=== PATIENT | male | born 1960 | race Caucasian/White ===

== ENCOUNTER 2019-02-06 20:37 | Emergency (ER) | payer OTHER, BC, SELFPAY ==
[2019-02-06 20:38] VITALS: BP 156/99; PULSE 81; RESP 16; TEMP 36.7; O2SAT 99; BMI 33.9
--- NOTE | 2019-02-06 20:49 | ED.RN ---
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
--- NOTE | 2019-02-06 21:16 | RAD_ITS ---
STUDY: X-RAY - LUMBAR SPINE REASON FOR EXAM: Male, 58 years old. 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 Back pain. TECHNIQUE: 3 view(s) of the lumbar spine were obtained. COMPARISON: None FINDINGS: Normal lumbar lordosis. There is no substantial scoliosis. There is a normal alignment of the vertebrae. There is multilevel endplate spondylosis of the lumbar vertebrae. There is minimal disc space narrowing. There is no evidence of acute fracture or loss of vertebral axial height. The soft tissue structures are unremarkable. RAD/Lumbar Spine 2 or 3 Views IMPRESSION: Degenerative changes of the spine, as detailed above. Electronically Signed: Guero Reese DO at 21:51 EST Tel [phone], Service support ,
--- NOTE | 2019-02-06 21:24 | RAD_ITS ---
STUDY: X-RAY - PELVIS AND RIGHT HIP REASON FOR EXAM: Male, 58 years old. Fell off a ladder at work. Hip pain radiating into the back. TECHNIQUE: 3 views of the pelvis and hip. COMPARISON: None. FINDINGS: There is a non-specific bowel gas pattern. Normal visualized soft tissue structures. Normal bilateral iliac wings, sacroiliac joints and visualized sacrum. Normal bilateral superior and inferior pubic rami. Normal pubic symphysis. Normal bilateral ischial tuberosities. Normal visualized right femoral head. Normal right acetabulum. There is mild articular joint space narrowing of the right hip. RAD/HIP, UNI W/ Pelvis 2-3 Views IMPRESSION: Minimal degenerative changes right hip. There is no acute fracture or dislocation. Electronically Signed: Guero Reese DO at 21:50 EST Tel [phone], Service support ,
--- NOTE | 2019-02-06 22:14 | ED.DCSUM_ITS ---
- ER Visit Summary Date of Service: 02/06/19 Chief Complaint: Fall History of Present Illness: The patient is a 58 M who presents after a fall that occurred today. Patient states he was climbing up on a ladder when 1 of the rungs broke and he fell. Patient states he landed on his right foot. Patient complains of pain in his right hip and low back. Patient denies any head injury or loss of consciousness. Patient states his pain is constant burning but sharp at times. Patient states the pain is worse with certain movements. Patient does admit to some tingling down his right leg. Patient denies any bowel or bladder changes. Patient denies any saddle anesthesia. Physical Examination: Vital signs are stable. Patient is afebrile. Patient is in no acute distress. Musculoskeletal exam reveals tenderness and spasm of the right lumbar paraspinal muscles. There is no midline tenderness. There is no bony crepitance or step-off. There is also tenderness over the right hip. There is pain with internal and external rotation. There is no deformity noted. Patient is sitting on exam. Strength is 5/5 bilateral knee upper and lower extremities. There are no sensory deficits noted. Pedal pulses are equal bilaterally. Test Results: X-rays of the lumbar spine were obtained. There is some degenerative changes but no acute fracture. X-rays of the right hip were obtained. There is no acute fracture. These were interpreted by the radiologist and myself. Emergency Department Course and Treatment: Patient was advised that this is most likely muscular strain. Patient was instructed to use ice to the area. Patient was instructed to take [id number] ibuprofen as needed for pain. Patient was instructed to follow-up with his primary care physician or [facility] in 5 to 7 days. Patient understood and was agreeable with the plan. All questions were answered. Disposition: Discharge home Impression: 1. Right hip strain 2. Lumbosacral strain This note was generated with [employer]LOG dictation software. It may contain incorrect words, spelling, and punctuation that were not noted in review of the chart prior to signing ED Disposition - Plan for ED Patient: Disposition: Home or Assisted Living Diagnosis: Strain of right hip, Lumbosacral strain Instructions: Hip Strain, Back Sprain/Strain Referrals: Chirag Torre DO [Primary Care Provider] - 5-7 Days
== END 2019-02-06 22:39 | disposition home or self-care (01) ==
PROVIDERS: Emergency Provider Emergency Medicine; Family Provider Preventive Medicine Occupational Medicine; PCP Preventive Medicine Occupational Medicine
DX: S39.012A Strain of muscle, fascia and tendon of lower back, initial encounter (principal); S76.011A Strain of muscle, fascia and tendon of right hip, initial encounter; W11.XXXA Fall on and from ladder, initial encounter; Y99.0 Civilian activity done for income or pay; I25.10 Atherosclerotic heart disease of native coronary artery without angina pectoris; F17.210 Nicotine dependence, cigarettes, uncomplicated; Z95.5 Presence of coronary angioplasty implant and graft
CPT/HCPCS: 72100; 73502; 99281